=== PATIENT | male | born 1980 | race Two or more races ===

== ENCOUNTER 2023-12-13 11:27 | Outpatient (CLI) | payer OTHER, SELFPAY ==
[2023-12-13 11:52] LABS: Basophils # 0.1 10^3/uL (0.0-0.1); Basophils % 0.7 %; Eosinophils # 0.2 10^3/uL (0.0-0.8); Eosinophils % 2.4 %; Hematocrit 46.9 % (37-53); Lymphocytes # 2.4 10^3/uL (0.8-4.8); Lymphocytes % 27.3 %; Mean Corpuscular Hemoglobin 27.7 pg (27-33); Mean Corpuscular Volume 86.7 fl (82-101); Mean Platelet Volume 10.5 fL (7.4-10.4); Monocytes # 0.6 10^3/uL (0.2-0.9); Monocytes % 6.7 %; Neutrophils # 5.56 10^3/uL (1.8-7.7); Neutrophils % 62.6 %; Nucleated Red Blood Cells % 0 %; Platelet Count 256 10^3/cmm (157-399); Red Blood Count 5.41 10^6/uL (3.85-5.65); Red Cell Distribution Width 12.9 % (12.1-15.1); White Blood Count 8.87 10^3/uL (3.29-11.43)
[2023-12-13 12:19] LABS: Alanine Aminotransferase 52 U/L (0-41); Albumin Level 4.4 g/dL (3.5-5.2); Alkaline Phosphatase 112 U/L (40-130); Anion Gap 13.4 (5-19); Aspartate Amino Transferase 21 U/L (0-40); Blood Urea Nitrogen 15 mg/dL (6-20); Calcium 9.1 mg/dL (8.5-10.5); Carbon Dioxide 24 mmol/L (22-29); Chloride 106 mmol/L (98-107); Chol HDL Ratio 4.97 mg/dL (1.0-5.00); Cholesterol 184 mg/dL (0-200); Glomerular Filtration Rate 91.3 mL/min (90-130); Glucose 93 mg/dL (65-115); HDL Cholesterol 37 mg/dL (60-100); LDL Cholesterol Calculated 112 mg/dL (50-129); LDL HDL Ratio 3.03 RATIO (0.00-3.22); Osmolality Calculated 289 mOsm/kg (285-295); Potassium 4.4 mmol/L (3.5-5.1); Sodium 139 mmol/L (136-145); Total Bilirubin 0.4 mg/dL (0.15-1.2); Total Protein 7.4 g/dL (6.6-8.7); Triglycerides 177 mg/dL (0-150)
[2023-12-13 12:31] LABS: HIV 1 & 2 Antibody Non-Reactive (Non-Reactiv); HIV 1 & 2 Antigen Non-Reactive (Non-Reactiv)
[2023-12-15 17:05] LABS: Quantiferon Mitogen 9.22 IU/mL; Quantiferon Nil 0.01 IU/mL; Quantiferon TB Gold NEGATIVE (NEGATIVE)
== END 2023-12-13 11:28 | disposition home or self-care (01) ==
LOC: LAB 11:30
PROVIDERS: Visit Provider Nurse Practitioner Family
DX: L40.0 Psoriasis vulgaris (principal)
CPT/HCPCS: 36415; 80048; 80061; 80076; 85025; 86480; 87806

== ENCOUNTER → 2024-02-14 11:20 | Outpatient (BNVA) | payer OTHER, SELFPAY | PROVIDERS: Visit Provider Surgery | DX: Z12.11 Encounter for screening for malignant neoplasm of colon (principal) | CPT/HCPCS: 99203 ==

== ENCOUNTER 2024-03-12 10:05 | Day surgery (SDC) | payer OTHER, SELFPAY ==
--- NOTE | 2024-03-12 10:14 | W.PM.OPSUD ---
Surgery/Procedure H&P Update DATE OF PROCEDURE: March 12, 2024 DATE H&P PERFORMED: 02/14/24 H&P UPDATE INFORMATION: I have reviewed H&P completed within last 30 days, I have examined patient prior to procedure, No changes to prior documentation and H&P is in [facility] [place] on date indicated PLANNED PROCEDURE: Operation Date: 03/12/24 11:15 Proposed Procedures p Colonoscopy 03094, G0121, Z12.11(Not Applicable) - Patrice Watts MD
[2024-03-12 10:24] VITALS: BP 155/101; PULSE 64; RESP 18; TEMP 36.6; O2SAT 95
[2024-03-12 10:26] VITALS: BMI 47.2
[2024-03-12 10:29] VITALS: BMI 47.2
--- NOTE | 2024-03-12 10:29 | ANES.PREANE2 ---
Pre-Anesthetic Assessment Height/Weight: Height 1.96 m Temp Pulse Resp BP Pulse Ox 97.9 F 64 18 155/101 95 03/12/24 10:24 03/12/24 10:24 03/12/24 10:24 03/12/24 10:24 03/12/24 10:24 Operation Date: 03/12/24 11:15 Proposed Procedures p Colonoscopy 88508, G0121, Z12.11(Not Applicable) - Patrice Watts MD Familial anesthetic complications: None Was Beta Nithya taken within 24 hours: Yes Was Clonidine taken within 24 hours: N/A Last intake: Solid: 03/10, liquid >12 hours Social No alcohol and No tobacco Exam alert, oriented x 3, clear to auscultation bilaterally and regular rate & rhythm Airway Submandibular: within normal limits (Poor mouth opening) Mallampati: Class III Dentition: chipped Comments: Comments: Poor dentition History/ROS No significant history except as noted and No significant complaints Pulmonary Sleep Apnea CV/HEM Hypertension None reported Hepatic Fatty liver GI Gastroesophageal Reflux Disease (Controlled with meds, no issues this morning) Metabolic Morbid Obesity Musc/skel Osteoarthritis/DJD and Weakness (Right leg weak) Spinal stenosis Neuropsych Neuropathy (Mainly right LE) Anesthetic Plan ASA status: 3 Anesthesia: Anesthesia Evaluation, General and MAC Risk of > 500 ml blood loss (7ml/kg in children): No Medications/Allergies Home Medications Medication Instructions Recorded Confirmed Last Taken Type lisinopril 20 1 tab PO BID 05/30/20 03/07/24 03/07/24 History mg-hydrochlorothiazide 12.5 mg tablet calcipotriene 0.005 % topical 1 applic topical BID #60 grams 04/19/22 03/07/24 03/07/24 Rx ointment metoprolol succinate 100 mg 100 mg PO BID 12/11/23 03/07/24 03/12/24 History tablet,extended release 24 hr Allergies Allergy/AdvReac Type Severity Reaction Status Date / Time No Known Allergies Allergy Verified 03/12/24 10:19 [facility] Anesthesia Medical History (Updated 12/11/23 @ 16:22 by Allison Roach NP) Hypertension Social History Smoking and tobacco/nicotine status: never used tobacco/nicotine Data Anesthesia Cardiac Studies: No Data to Display
[2024-03-12] MEDS: sodium chloride 0.9% 500 ML 15 ML IV (10:36)
[2024-03-12 12:14] VITALS: BP 113/79; PULSE 65; RESP 18; TEMP 36.3; O2SAT 94
[2024-03-12 12:22] VITALS: BP 115/75; PULSE 66; RESP 18; TEMP 36.2; O2SAT 96
== END 2024-03-12 12:34 | disposition home or self-care (01) ==
PROVIDERS: Visit Provider Surgery
PROC: 0DJD8ZZ Inspection of Lower Intestinal Tract, Via Natural or Artificial Opening Endoscopic (ICD-10-PCS; CPT 45378; principal; 2024-03-12 11:15)
DX: Z12.11 Encounter for screening for malignant neoplasm of colon (principal); I10 Essential (primary) hypertension; D12.5 Benign neoplasm of sigmoid colon; D12.3 Benign neoplasm of transverse colon; D12.8 Benign neoplasm of rectum; G47.30 Sleep apnea, unspecified; E66.01 Morbid (severe) obesity due to excess calories; Z68.42 Body mass index [BMI] 45.0-49.9, adult; K21.9 Gastro-esophageal reflux disease without esophagitis
CPT/HCPCS: 45380; 45385; 88305; J2704; J7040

== ENCOUNTER → 2024-03-27 09:19 | Outpatient (BNVA) | payer OTHER, SELFPAY | PROVIDERS: Visit Provider Surgery | DX: Z09 Encounter for follow-up examination after completed treatment for conditions other than malignant neoplasm (principal); R03.0 Elevated blood-pressure reading, without diagnosis of hypertension | CPT/HCPCS: 99213 ==

== ENCOUNTER → 2024-03-28 08:55 | Outpatient (BNVA) | payer OTHER, SELFPAY | PROVIDERS: Visit Provider Nurse Practitioner Family | DX: L40.0 Psoriasis vulgaris (principal); L60.8 Other nail disorders | CPT/HCPCS: 99214 ==